=== PATIENT | male | born 1980 ===

== ENCOUNTER → 2017-09-12 | Outpatient (CLI) | payer OTHER ==
--- NOTE | 2017-09-12 10:07 | RADIOLOGY IMAGING REPORT ---
FACILITY: [facility] PATIENT NAME: Sudheer Gonzalez : 1980 MR: [id number] V: [id number] EXAM DATE: ORDERING PHYSICIAN: NAVARRO CABRERA TECHNOLOGIST: Location: [facility] Patient: Sudheer Gonzalez : 1980 Visit/Account:[id number] Date of Sevice: 09/12/2017 LIVER EXAMINATION: Limited right upper quadrant ultrasound Additional Pertinent history: none COMPARISON STUDIES: None. FINDINGS: Liver: Normal. Gallbladder: Normal wall thickness, no evidence of gallstone. Common duct: normal 3.1 mm. Pancreas: Visualized portions are normal. Right kidney: Normal. No hydronephrosis or mass. Proximal IVC/Aorta: negative IMPRESSION: Normal ultrasound right upper quadrant. Report Dictated By: Bernard Nazario at 09/12/2017 10:01 AM Report E-Signed By: Bernard Nazario at 09/12/2017 10:03 AM WSN:[id number]
== END ==
LOC: US 00:42
PROVIDERS: ATTEND Family Medicine
DX: R94.5 Abnormal results of liver function studies (principal)
CPT/HCPCS: 76705